=== PATIENT | male | born 1990 | race Caucasian/White ===

== ENCOUNTER 2019-06-05 17:09 | Emergency (ER) | payer SELFPAY ==
[~2019-06-05] VITALS: Ht 172.7 cm; Wt 81.6 kg
[2019-06-05 17:29] VITALS: BP 153/90
--- NOTE | 2019-06-05 17:56 | PHYS DOC ---
Past Medical History Past Medical History: MRSA, Other Additional Past Medical Histor: staph infections Past Surgical History: Other Additional Past Surgical Histo: adenoids removed, bilateral myringotomy with tubes Alcohol Use: Occasionally Drug Use: None Adult General Chief Complaint Chief Complaint: BACK PAIN OR INJURY HPI HPI Patient is a 29 year old male who presents with was at work 24 hours ago and he lifts heavy boxes and when he lifted a box he felt a sharp pull in his right ribs. Patient states since then every time he moves that side of his upper body is very painful. She rates his pain 8 out of 10. Patient has not taken ibuprofen in the last 24 hours for this pain. Review of Systems Review of Systems Musculoskeletal: Right ribs pain. Denies back pain or joint pain [] All other systems were reviewed and found to be within normal limits, except as documented in this note. Allergies Allergies Allergies Coded Allergies Type Severity Reaction Last Updated Verified Penicillins Allergy Intermediate 07/22/13 Yes Physical Exam Physical Exam Constitutional: Well developed, well nourished, no acute distress, non-toxic appearance. [] Cardiovascular:Heart rate regular rhythm, no murmur [] Lungs & Thorax: Bilateral breath sounds clear to auscultation [] Abdomen: Bowel sounds normal, soft, no tenderness, no masses, no pulsatile masses. [] Skin: Warm, dry, no erythema, no rash. [] Back: Right ribs tenderness, no CVA tenderness. [] Extremities: No tenderness, no cyanosis, no clubbing, ROM intact, no edema. [] Neurologic: Alert and oriented X 3, normal motor function, normal sensory funct ion, no focal deficits noted. [] Psychologic: Affect normal, judgement normal, mood normal. [] Current Patient Data Vital Signs Vital Signs Date Time Temp Pulse Resp B/P (MAP) Pulse Ox O2 Delivery O2 Flow Rate FiO2 06/05/19 17:29 98.2 100 18 153/90 (111) 100 Room Air 98.2 EKG EKG [] Radiology/Procedures Radiology/Procedures [] Course & Med Decision Making Course & Med Decision Making Ambulatory with a steady gait. Patient has no weaknesses denies any weaknesses. Patient states he only has pain with moving her stretching on the right ribs or lifting that arm. Patient states he would like a work note so he does not keep reinjuring the area. Patient states he would like for light duty. Lungs are clear to auscultation a low-dose. There is tenderness but no crepitus is felt over the right ribs. There is no bruising or swelling. No deformity. Patient is alert and oriented and ambulatory with a steady gait. Patient is educated to use 800 mg ibuprofen every 8 hours and he can also throwing Tylenol if the pain does not stop. Patient is also educated a use a heating pad and he can also use Salonpas Lidocaine Patches over the Area. Patient states he only has $60 to use. I told the patient that ibuprofen right off the shelf and the lidocaine patches are both very under $60. Patient states his understanding of this treatment plan. Patient chose not to further care after registration spoke with the patient about payment. Dragon Disclaimer Dragon Disclaimer This electronic medical record was generated, in whole or in part, using a voice recognition dictation system. Departure Departure Impression: Primary Impression: Muscle strain Additional Impression: Encounter for medical screening examination Disposition: HOME, SELF-CARE Condition: STABLE Referrals: NO PCP (PCP) Problem Qualifiers [facility] Jun 05, 2019 17:56
== END 2019-06-05 18:10 | disposition home or self-care (01) ==
LOC: ER 17:09
DX: S29.011A Strain of muscle and tendon of front wall of thorax, initial encounter (principal); Z96.22 Myringotomy tube(s) status; Z22.322 Carrier or suspected carrier of Methicillin resistant Staphylococcus aureus; Z90.89 Acquired absence of other organs; Z88.0 Allergy status to penicillin; X50.0XXA Overexertion from strenuous movement or load, initial encounter; Y93.89 Activity, other specified; Y92.89 Other specified places as the place of occurrence of the external cause; Y99.8 Other external cause status
CPT/HCPCS: 99281